=== PATIENT | female | born 1975 | race American Indian/Alaskan Native ===

== ENCOUNTER 2018-05-20 15:11 | Emergency (ER) | payer SELFPAY ==
[2018-05-20] MEDS ORDERED: BSS 1 DROPS, TETRACAINE 0.5% 1 DROPS, FUL-GLO 0.6 MG OD ONE (20:49)
[2018-05-20] MEDS ORDERED: BSS ONE (20:49)
[2018-05-20] MEDS ORDERED: FUL-GLO OP ONE (20:49)
[2018-05-20] MEDS ORDERED: TETRACAINE 0.5% ONE (20:49)
[2018-05-20] MEDS ORDERED: NORCO 7.5/325 PO ONE (20:57)
[2018-05-20] MEDS ORDERED: BOOSTRIX IM ONE (21:09)
--- NOTE | 2018-05-20 21:13 | Emergency Department Report ---
ED Eye Problem HPI - General Chief complaint: Eye Problems Stated complaint: LEFT EYE PAIN Time Seen by Provider: 05/20/18 20:48 Source: patient Mode of arrival: Ambulatory Limitations: No Limitations - History of Present Illness Initial comments: 43-year-old female comes in complaining of left eye pain for 1 day. Patient reports that the pain is a 10 out of 10. She reports that she was wearing makeup yesterday and not sure if she has irritated her eye. Patient reports that the light makes it worse closing her eyes makes it better. She reports that it feels like something then it and that she is not able to see out of her left eye. She admits to eye tearing. She does admit to wearing corrective glasses and has worn contacts but has not worn them lately. MD chief complaint: eye pain -: days(s) (1) Location: left eye Eye Symptoms: redness, pain, decreased vision, photophobia Severity scale (0 -10): 10 - Related Data Patient Tetanus UTD: No Previous Rx's Medication Instructions Recorded Last Taken Type Erythromycin [Erythromycin Ophth 1 applic OD QID 10 Days #1 tube 05/20/18 Unknown Rx Oint] HYDROcodone/ACETAMINOPHEN [[place] 1 each PO Q6H 3 Days #12 tablet 05/20/18 Unknown Rx 7.5-325 Tablet] Ibuprofen [Motrin 600 MG tab] 600 mg PO Q8H PRN #30 tablet 05/20/18 Unknown Rx Allergies Allergy/AdvReac Type Severity Reaction Status Date / Time No Known Allergies Allergy Verified 05/20/18 20:50 ED Review of Systems ROS: Stated complaint: LEFT EYE PAIN Other details as noted in HPI ED Past Medical Hx - Past Medical History Previous Medical History?: No - Surgical History Past Surgical History?: Yes Additional Surgical History: - Social History Smoking Status: Never Smoker Substance Use Type: None - Medications Home Medications: Home Medications Medication Instructions Recorded Confirmed Last Taken Type Erythromycin [Erythromycin Ophth 1 applic OD QID 10 Days #1 tube 05/20/18 Unknown Rx Oint] HYDROcodone/ACETAMINOPHEN [[place] 1 each PO Q6H 3 Days #12 tablet 05/20/18 Unknown Rx 7.5-325 Tablet] Ibuprofen [Motrin 600 MG tab] 600 mg PO Q8H PRN #30 tablet 05/20/18 Unknown Rx ED Physical Exam - General Limitations: No Limitations - Eye Eye exam: Present: EOMI - Expanded Eye Exam Expanded Eyelids: Normal Inspection: Left Pupils: Regular, Round: Bilateral (patient has a huge corneal abrasion over the left pupil.) Sclera/Conjunctival: Injection: Left ED Course Vital Signs 05/20/18 05/20/18 05/20/18 15:31 20:12 21:01 Temperature 98.4 F Pulse Rate 69 Respiratory 18 20 16 Rate Blood Pressure 140/59 O2 Sat by Pulse 100 98 Oximetry ED Medical Decision Making - Medical Decision Making Patient has been evaluated by this provider fast track. Fluoroscein exam performed shows patient has a large corneal abrasion at the center where the pupil is located. Discussed patient will place on erythromycin eye ointment,, [place] and ibuprofen for pain. Referral to several glue jointer operator for her to follow-up. Patient verbalized understanding Critical care attestation.: If time is entered above; I have spent that time in minutes in the direct care of this critically ill patient, excluding procedure time. ED Disposition Clinical Impression: Corneal abrasion, left Qualifiers: Encounter type: initial encounter Qualified Code(s): S05.02XA - Injury of conjunctiva and corneal abrasion without foreign body, left eye, initial encounter Disposition: DC- TO HOME OR SELFCARE Is pt being admited?: No Does the pt Need Aspirin: No Condition: Stable Instructions: Corneal Abrasion (ED) Additional Instructions: Please take pain medication as needed. Please use antibiotic eye cream as prescribed. It is very important for you to follow up with glue jointer operator to be sure that you are being adequately treated for your corneal abrasion. Prescriptions: Erythromycin [Erythromycin Ophth Oint] 1 applic OD QID 10 Days #1 tube HYDROcodone/ACETAMINOPHEN [[place] 7.5-325 Tablet] 1 each PO Q6H 3 Days #12 tablet Ibuprofen [Motrin 600 MG tab] 600 mg PO Q8H PRN #30 tablet PRN Reason: Pain Referrals: PRIMARY CAREMD [Primary Care Provider] - 3-5 Days EVANGELISTA GREEN MD [Staff Physician] - 3-5 Days [facility] [Provider Group] - 3-5 Days [facility] [Provider Group] - 3-5 Days [facility] [Provider Group] - 3-5 Days Forms: Work/School Release Form(ED)
[2018-05-20 21:14] VITALS: BP 136/74
== END 2018-05-20 21:54 | disposition home or self-care (01) ==
LOC: ED 15:11
DX: S05.02XA Injury of conjunctiva and corneal abrasion without foreign body, left eye, initial encounter (principal); X58.XXXA Exposure to other specified factors, initial encounter; Y93.89 Activity, other specified; Y99.8 Other external cause status; Y92.89 Other specified places as the place of occurrence of the external cause
CPT/HCPCS: 90715; 96372; 99282